=== PATIENT | male | born 2000 | race Two or more races ===

== ENCOUNTER → 2024-09-12 | Outpatient (CLI) | payer MEDICAID, SELFPAY ==
--- NOTE | 2024-09-12 09:41 | XR_ITS ---
Examination: Abdomen AP single view Technique: AP portable supine abdomen, single view Exam date and time: September 12, 2024 0947 hrs. Indications: Left lower abdominal pain beginning one month ago. Findings: Moderate to large amounts of stool throughout the colon No obstruction No free air Impression: Moderate to large amounts of stool throughout the colon
== END | disposition home or self-care (01) ==
PROVIDERS: PCP Physician Assistant; Referring Provider Physician Assistant; Visit Provider Physician Assistant
DX: K59.09 Other constipation (principal)
CPT/HCPCS: 74018